=== PATIENT | male | born 1935 | race Caucasian/White ===

== ENCOUNTER 2020-05-03 11:25 | Day surgery (SDC) | payer MEDICARE, OTHER ==
[2020-05-03] MEDS ORDERED: Xylocaine 1% Vial 30 ML PF IJ ONE (11:26)
[2020-05-03] MEDS ORDERED: Depo-Medrol 40 MG/ML IM ONE (11:26)
[2020-05-03] MEDS ORDERED: Sodium Chloride 0.9(Preservative Free) 10 ML IJ ONE (11:26)
--- NOTE | 2020-05-03 14:41 | XRAY ---
Indication: Lumbar ANNAMARIA. Intraoperative fluoroscopy provided for 21 seconds. 2 digital spot images submitted for interpretation demonstrates midline posterior needle tip projecting just posterior to L5. Small amount of contrast injected for needle tip placement. Correlate with intraoperative findings/report.
--- NOTE | 2020-05-03 16:35 | XRAY ---
21 seconds of fluoroscopy was used in surgery for a lumbar ANNAMARIA.
== END 2020-05-03 14:17 | disposition home or self-care (01) ==
LOC: SDC-PAIN 11:25
PROVIDERS: ATTEND Psychiatry & Neurology Pain Medicine
DX: M54.16 Radiculopathy, lumbar region (principal); E11.9 Type 2 diabetes mellitus without complications; I10 Essential (primary) hypertension; N18.2 Chronic kidney disease, stage 2 (mild); M06.9 Rheumatoid arthritis, unspecified; Z79.899 Other long term (current) drug therapy
CPT/HCPCS: 62323; 72100; 77003; 82947; J1030; J2001; Q9966

== ENCOUNTER 2020-07-12 14:28 | Day surgery (SDC) | payer MEDICARE, OTHER ==
[2020-07-12] MEDS ORDERED: Sodium Chloride 0.9(Preservative Free) 10 ML IJ ONE (14:29)
[2020-07-12] MEDS ORDERED: Depo-Medrol 40 MG/ML IM ONE (14:29)
[2020-07-12] MEDS ORDERED: Xylocaine 1% Vial 30 ML PF IJ ONE (14:29)
--- NOTE | 2020-07-13 23:17 | XRAY ---
Indication: Caudal ANNAMARIA. Intraoperative fluoroscopy was provided for 43 seconds. 2 digital spot images submitted for interpretation demonstrate a posterior needle tip projected at the posterior margin of the upper aspect of the sacrum near the midline. A small amount of contrast has been injected for needle tip placement. Correlate with intraoperative findings/report.
--- NOTE | 2020-07-14 07:11 | XRAY ---
43 seconds of fluoroscopy was used in surgery for a caudal ANNAMARIA.
== END 2020-07-12 18:01 | disposition home or self-care (01) ==
LOC: SDC-PAIN 14:28
PROVIDERS: ATTEND Psychiatry & Neurology Pain Medicine
DX: M54.16 Radiculopathy, lumbar region (principal); M06.9 Rheumatoid arthritis, unspecified; E11.22 Type 2 diabetes mellitus with diabetic chronic kidney disease; I12.9 Hypertensive chronic kidney disease with stage 1 through stage 4 chronic kidney disease, or unspecified chronic kidney disease; N18.2 Chronic kidney disease, stage 2 (mild); Z79.899 Other long term (current) drug therapy
CPT/HCPCS: 36415; 62323; 72100; 77002; 82947; J1030; J2001; Q9966